=== PATIENT | female | born 1965 | race Caucasian/White ===

== ENCOUNTER 2017-03-11 21:34 | Emergency (ER) | payer OTHER ==
[~2017-03-11] VITALS: Ht 160 cm; Wt 85.3 kg
[~2017-03-11 21:34] MED LIST: CITALOPRAM HBR40 MG PO; LANTUS100 UNITS/ SUB-Q; LISINOPRIL-HCT1 EACH PO; MONTELUKAST SOD10 MG PO; NORCO 5-325 TA1 EACH PO; NOVOLOG100 UNITS/ IV
[2017-03-11] MEDS ORDERED: LIPITOR20 MG PO (21:58)
[2017-03-11] MEDS ORDERED: ZYRTEC10 MG PO (21:58)
[2017-03-11] MEDS ORDERED: ZANAFLEX4 M1 PO (21:59)
== END 2017-03-12 00:30 | disposition home or self-care (01) ==
LOC: ED 21:34
DX: E11.65 Type 2 diabetes mellitus with hyperglycemia (principal); I10 Essential (primary) hypertension; Z90.49 Acquired absence of other specified parts of digestive tract; Z88.1 Allergy status to other antibiotic agents; Z79.899 Other long term (current) drug therapy; Z79.4 Long term (current) use of insulin
CPT/HCPCS: 80053; 81001; 82010; 85025; 99283; J7030

== ENCOUNTER 2017-04-17 06:31 | Day surgery (SDC) | payer OTHER ==
[~2017-04-17 06:31] MED LIST changes: +LIPITOR20 MG PO; +ZANAFLEX4 M1 PO; +ZYRTEC10 MG PO
[2017-04-17] MEDS ORDERED: CALCIUM500 MG PO (06:34)
[2017-04-17] MEDS ORDERED: MULTIVITAMINS1 EAC7 PO (06:34)
[2017-04-17] MEDS ORDERED: VICTOZA 2-0.6 MG/0.1 SUB-Q (06:44)
[2017-04-17] MEDS ORDERED: EXCEDRIN MIGRA1 EAC2 PO (06:45)
--- NOTE | 2017-04-17 08:07 | NUR ---
04/17/17 0807 Randall Anaya G NOW 194
--- NOTE | 2017-04-23 10:10 | OR ---
[facility] [address] [place], [place] [address] Signed DATE OF OPERATION: 04/17/2017 SURGEON: Josiah Gillis MD PREOPERATIVE DIAGNOSIS: Screening. POSTOPERATIVE DIAGNOSIS: Colonic diverticula x2 (right colon and proximal transverse colon). PROCEDURE: Colonoscopy without biopsy. ESTIMATED BLOOD LOSS: None. INDICATIONS: Fadumo is a 51-year-old female, asked to see me for her initial screening colonoscopy. She described a barium enema, back in the and said it was horrible, but to her knowledge, it was negative. She gives no family history of colon cancer or polyps. She has no lower GI complaints. They did switch her diabetic medication to metformin recently and she immediately developed diarrhea. Otherwise, she says she is doing great. In the office, I gave Fadumo a pamphlet on colonoscopy and we looked at that together along with the risks including, but not limited to, gas bloating, crampy abdominal pain, bleeding, perforation, requiring surgery, and missed diagnosis. We also discussed the need for IV conscious sedation. She had expressed understanding and wished to proceed. PROCEDURE NOTE: Fadumo was taken into our endoscopy suite and placed in the left lateral decubitus position. She was given IV sedation with 5 mg of Versed and 100 mcg of fentanyl. A digital rectal exam was performed and this was unremarkable. The adult colonoscope was introduced and advanced all around into the cecum under direct visualization of camera without difficulty. It took a few minutes to get around her rectosigmoid junction and we had to rotate the scope just a bit and used abdominal compression. Her prep was quite good. The scope was then slowly withdrawn. In the mid distal right colon, we saw a single diverticulum. Then as we came into the proximal transverse colon, we saw one additional diverticulum. Interestingly enough, we did not see any diverticula in the left or sigmoid colon. The rectum itself was unremarkable. Upon retroflexion of the scope, there was no additional pathology noted above the anal canal. After this, the gas was suctioned out and the colonoscope removed. Fadumo tolerated the procedure quite Electronically Signed By: JOSIAH GILLIS MD 04/23/17 1010 PATIENT NAME: CASE,RONAK SALDIVAR OPERATIVE REPORT DATE OF : 67 PHYSICIAN: JOSIAH GILLIS MD REPORT #: [id number] REPORT IS CONFIDENTIAL AND NOT TO BE RELEASED WITHOUT AUTHORIZATION [address] [address] Signed well. RECOMMENDATIONS: Fadumo can follow up in 10 years for repeat screening colonoscopy. MD MARCELO Jones/AUSTINL /[id number] cc: MD Palma Ventura MD Electronically Signed By: JOSIAH GILLIS MD 04/23/17 1010 PATIENT NAME: CASE,RONAK SALDIVAR OPERATIVE REPORT DATE OF : 67 PHYSICIAN: JOSIAH GILLIS MD REPORT #: [id number] REPORT IS CONFIDENTIAL AND NOT TO BE RELEASED WITHOUT AUTHORIZATION
== END 2017-04-17 08:54 | disposition home or self-care (01) ==
LOC: DS 06:31
PROVIDERS: Colon & Rectal Surgery
PROC: 0DJD8ZZ Inspection of Lower Intestinal Tract, Via Natural or Artificial Opening Endoscopic (ICD-10-PCS; principal; 2017-04-17 06:45)
DX: Z12.11 Encounter for screening for malignant neoplasm of colon (principal); K57.30 Diverticulosis of large intestine without perforation or abscess without bleeding; J30.9 Allergic rhinitis, unspecified; I10 Essential (primary) hypertension; J45.909 Unspecified asthma, uncomplicated; E78.5 Hyperlipidemia, unspecified; E11.9 Type 2 diabetes mellitus without complications; F41.0 Panic disorder [episodic paroxysmal anxiety]; F32.9 Major depressive disorder, single episode, unspecified; Z98.890 Other specified postprocedural states; Z23 Encounter for immunization; Z90.89 Acquired absence of other organs; Z90.49 Acquired absence of other specified parts of digestive tract; Z88.1 Allergy status to other antibiotic agents; Z79.899 Other long term (current) drug therapy
CPT/HCPCS: 90674; 99153; G0008; G0500; J2250; J3010; J7120

== ENCOUNTER 2019-01-29 21:41 | Emergency (ER) | payer OTHER ==
[~2019-01-29] VITALS: Ht 160 cm; Wt 77.6 kg
[~2019-01-29 21:41] MED LIST changes: +ALBUTEROL2.5 MG/3 M INH; +BACLOFEN10 MG PO; +CALCIUM500 MG PO; +EXCEDRIN MIGRA1 EAC2 PO; +JARDIANCE25 MG PO; +MOTRIN IB200 MG PO; +MULTIVITAMINS1 EAC7 PO; +OZEMPIC0.25 MG/0. SUB-Q; +PERCOCET 5-3251 EACH PO; +SINGULAIR10 MG PO; +VICTOZA 2-0.6 MG/0.1 SUB-Q; +ZOFRAN8 MG PO
[2019-01-29] MEDS ORDERED: PROTONIX40 MG PO (23:13)
--- NOTE | 2019-01-30 11:56 | EKG ---
[facility] [address] [facility] [place], [place] [address] Signed Normal sinus rhythm Normal ECG No previous ECGs available Confirmed by SHABBIR MENDEZ DO ([id number]) on 01/30/2019 11:56:14 AM Electronically Signed By: SHABBIR MENDEZ DO 01/30/19 1156 PATIENT NAME: CASERONAK Electrocardiogram DATE OF : 67 PHYSICIAN: SHABBIR MENDEZ DO REPORT #: [id number] REPORT IS CONFIDENTIAL AND NOT TO BE RELEASED WITHOUT AUTHORIZATION
== END 2019-01-29 23:23 | disposition home or self-care (01) ==
LOC: ED 21:41
DX: R07.9 Chest pain, unspecified (principal); I10 Essential (primary) hypertension; E11.9 Type 2 diabetes mellitus without complications; Z88.1 Allergy status to other antibiotic agents; Z88.8 Allergy status to other drugs, medicaments and biological substances; Z79.4 Long term (current) use of insulin; Z79.899 Other long term (current) drug therapy
CPT/HCPCS: 71046; 80053; 83735; 84484; 85025; 85379; 85610; 85730; 93005; 93010; 96374; 99285-25; J1885

== ENCOUNTER 2019-09-05 16:33 | Emergency (ER) | payer OTHER ==
[~2019-09-05] VITALS: Ht 160 cm; Wt 79.4 kg
[~2019-09-05 16:33] MED LIST changes: +PROTONIX40 MG PO
[2019-09-05] MEDS ORDERED: NORCO 5-325 TA1 EACH PO (18:08)
== END 2019-09-05 19:05 | disposition home or self-care (01) ==
LOC: ED 16:33
DX: R07.89 Other chest pain (principal); E11.9 Type 2 diabetes mellitus without complications; J45.909 Unspecified asthma, uncomplicated; F32.9 Major depressive disorder, single episode, unspecified; I10 Essential (primary) hypertension; Z88.1 Allergy status to other antibiotic agents; W01.190A Fall on same level from slipping, tripping and stumbling with subsequent striking against furniture, initial encounter
CPT/HCPCS: 71046; 99283-25; A9270

== ENCOUNTER 2023-12-24 13:41 | Emergency (ER) | payer OTHER, MEDICARE ==
[~2023-12-24] VITALS: Ht 160 cm; Wt 78.7 kg
[2023-12-24] MEDS ORDERED: ADENOSINE 3 MG/ML VIAL ONE (13:46)
[2023-12-24 13:56] LABS: BASOPHILS 0.6 % (0-2); EOSINOPHILS 1.1 % (0-6); HEMATOCRIT 49.2 % (35.0-50.0); HEMOGLOBIN 16.2 g/dL (12.0-18.0); LYMPHOCYTES 20.2 % (24-44); MCH 26.7 (27-36); MCHC 32.9 g/dl (30-36); MCV 81.4 fl (81-99); MONOCYTES 6.2 % (0-12); NEUTROPHILS 71.9 % (39-80); PLATELET COUNT 312 K/uL (140-440); RBC 6.04 M/ul (4.3-5.7)
[2023-12-24 14:13] LABS: ALBUMIN 3.6 g/dL (3.4-5.0); ALBUMIN/GLOBULIN RATIO 0.92 (1.1-2.4); ANION GAP 12.9 (7-21); BILIRUBIN, TOTAL 0.7 ng/dL (0.2-1.0); BUN/CREATININE RATIO 12.06 (6.0-28.6); CREATININE, SERUM 1.16 mg/dL (0.55-1.02); POTASSIUM 3.9 mmol/L (3.5-5.1); PROTEIN, TOTAL 7.5 g/dL (6.4-8.2)
[2023-12-24] MEDS ORDERED: ASPIRIN 81 MG CHEW PO ONE (14:15)
[2023-12-24] MEDS ORDERED: HEPARIN SOD,PORK IN 0.45% NACL 500 ML IV SCH (14:45)
[2023-12-24] MEDS ORDERED: HEParin SOD (PORCINE) 5,000 UNIT/ML VIAL IV ONE (14:45)
[2023-12-24] MEDS ORDERED: ADENOSINE 3 MG/ML VIAL IV ONE (14:45)
[2023-12-24 14:56] VITALS: BP 116/76
--- NOTE | 2023-12-24 21:36 | EKG ---
[facility] [address] [facility] [place] [address] Signed Supraventricular tachycardia Left axis deviation Inferior infarct , age undetermined Abnormal ECG When compared with ECG of 29-JAN-2019 21:49, Vent. rate has increased BY 94 BPM Inferior infarct is now present Inverted T waves have replaced nonspecific T wave abnormality in Lateral leads Confirmed by Kelly Ibanez MD () on 12/24/2023 9:36:36 PM Electronically Signed By: KELLY IBANEZ MD 12/24/23 2136 PATIENT NAME: CASERONAK Electrocardiogram DATE OF : 67 PHYSICIAN: KELLY IBANEZ MD REPORT #: [id number] REPORT IS CONFIDENTIAL AND NOT TO BE RELEASED WITHOUT AUTHORIZATION
--- NOTE | 2023-12-24 21:37 | EKG ---
[facility] [address] [place] [address] Signed Age and gender specific ECG analysis Sinus tachycardia Inferior infarct (cited on or before 24-DEC-2023) ACUTE AL / STEMI Consider right ventricular involvement in acute inferior infarct Abnormal ECG When compared with ECG of 24-DEC-2023 13:39, Vent. rate has decreased BY 72 BPM Confirmed by Kelly Ibanez MD () on 12/24/2023 9:37:31 PM Electronically Signed By: KELLY IBANEZ MD 12/24/23 2137 PATIENT NAME: CASERONAK Electrocardiogram DATE OF : 67 PHYSICIAN: KELLY IBANEZ MD REPORT #: [id number] REPORT IS CONFIDENTIAL AND NOT TO BE RELEASED WITHOUT AUTHORIZATION
--- NOTE | 2023-12-24 21:38 | EKG ---
[facility] [address] [facility] [place] [address] Signed Age and gender specific ECG analysis Normal sinus rhythm Inferior infarct (cited on or before 24-DEC-2023) ACUTE ID / STEMI Consider right ventricular involvement in acute inferior infarct Abnormal ECG When compared with ECG of 24-DEC-2023 13:52, No significant change was found Confirmed by Kelly Ibanez MD () on 12/24/2023 9:38:36 PM Electronically Signed By: KELLY IBANEZ MD 12/24/23 2138 PATIENT NAME: CASERONAK Electrocardiogram DATE OF : 67 PHYSICIAN: KELLY IBANEZ MD REPORT #: [id number] REPORT IS CONFIDENTIAL AND NOT TO BE RELEASED WITHOUT AUTHORIZATION
== END 2023-12-24 14:56 | disposition short-term general hospital (02) ==
LOC: ED 13:41
PROVIDERS: Emergency Medicine
DX: I21.3 ST elevation (STEMI) myocardial infarction of unspecified site (principal); I47.19 Other supraventricular tachycardia; E11.9 Type 2 diabetes mellitus without complications; I10 Essential (primary) hypertension; Z88.1 Allergy status to other antibiotic agents; Z88.8 Allergy status to other drugs, medicaments and biological substances; Z79.4 Long term (current) use of insulin; Z79.899 Other long term (current) drug therapy
CPT/HCPCS: 36415; 80053; 83735; 84484; 85025; 93005; 93010; 96374; 96375; 99285-25; A9270; J0153; J1644

== ENCOUNTER 2024-01-03 16:48 | Emergency (ER) | payer OTHER, MEDICARE ==
[~2024-01-03] VITALS: Ht 160 cm; Wt 82.0 kg
[~2024-01-03 16:48] MED LIST changes: +ARIPIPRAZOLE2 MG PO; +HYDROXYCHLOROQ200 MG PO; +LITHIUM CARBON300 M2 PO; +NOVOLOG FL100 UNIT/1 SUB-Q; +OZEMPIC2 MG/0.75; +TRESIBA100 UNIT/1
--- OUTSIDE RECORDS SUMMARY | 2024-01-03 16:56 | XMS ---
PreManage Notification: RONAK GUARDADO Security Colorist Events No recent Security Events currently on file CRITERIA MET - [facility] - 2 Visits in 30 Days CARE PROVIDERS There are no care providers on record at this time. Adalgisa has no Care Guidelines for this patient. Elena VISIT COUNT (12 MO.) 2 [facility] TOTAL 3 NOTE: Visits indicate total known visits. ED/C VISIT TRACKING (12 MO.) 01/03/2024 16:50 [facility] TYPE: Emergency COMPLAINT: - MEDICATION REFILL 12/24/2023 15:35 [facility] TYPE: Emergency DIAGNOSES: - STEMI 12/24/2023 13:41 [facility] TYPE: Emergency COMPLAINT: - CHEST PAIN DIAGNOSES: - Allergy status to other antibiotic agents - Allergy status to other drugs, medicaments and biological substances - Essential (primary) hypertension - exterminator termite (current) use of insulin - Other exterminator termite (current) drug therapy - Other supraventricular tachycardia - Precordial pain - ST elevation (STEMI) myocardial infarction of unspecified site - Type 2 diabetes mellitus without complications INPATIENT VISIT TRACKING (12 MO.) 12/24/2023 15:35 [facility] TYPE: Internal Medicine DIAGNOSES: - Atherosclerotic heart disease of [place] coronary artery with unstable angina pectoris - Atherosclerotic heart disease of [place] coronary artery without angina pectoris - Chronic kidney disease, stage 3a - Hyperlipidemia, unspecified - exterminator termite (current) use of insulin - Presence of aortocoronary bypass graft - ST elevation (STEMI) myocardial infarction involving other coronary artery of inferior wall - Supraventricular tachycardia, unspecified - Type 2 diabetes mellitus with diabetic chronic kidney disease - STEMI [email or web address]
[2024-01-03] MEDS ORDERED: ATORVASTATIN CA40 MG PO (17:11)
[2024-01-03] MEDS ORDERED: METOPROLOL TART25 MG PO (17:12)
[2024-01-03] MEDS ORDERED: CLOPIDOGREL75 MG PO (17:12)
[2024-01-03] MEDS ORDERED: PERCOCET 5-3251 EACH PO (17:21)
[2024-01-03 17:27] VITALS: BP 109/79
== END 2024-01-03 17:29 | disposition home or self-care (01) ==
LOC: ED 16:48
DX: Z76.0 Encounter for issue of repeat prescription (principal); I10 Essential (primary) hypertension; E11.9 Type 2 diabetes mellitus without complications; J45.909 Unspecified asthma, uncomplicated; F32.A Depression, unspecified; Z88.1 Allergy status to other antibiotic agents; Z88.8 Allergy status to other drugs, medicaments and biological substances; Z79.899 Other long term (current) drug therapy; Z79.4 Long term (current) use of insulin
CPT/HCPCS: 99281

== ENCOUNTER 2024-11-03 13:59 | Emergency (ER) | payer OTHER, MEDICARE ==
[~2024-11-03] VITALS: Ht 160 cm; Wt 62.0 kg
[~2024-11-03 13:59] MED LIST changes: +ATORVASTATIN CA40 MG PO; +CLOPIDOGREL75 MG PO; +METOPROLOL TART25 MG PO
[2024-11-03] MEDS ORDERED: ADENOSINE 3 MG/ML VIAL ONE (14:16)
[2024-11-03] MEDS ORDERED: ADENOSINE 3 MG/ML VIAL IV ONE (14:30)
[2024-11-03 14:35] LABS: BASOPHILS 0.5 % (0.1-1.2); EOSINOPHILS 3.2 % (0.7-5.8); HEMATOCRIT 49.9 % (34.1-44.9); HEMOGLOBIN 16.1 g/dL (11.2-15.7); LYMPHOCYTES 25.4 % (19.3-51.7); MCH 26.8 PG (25.6-32.2); MCHC 32.3 g/dL (32.2-35.5); MONOCYTES 6.9 % (4.7-12.5); NEUTROPHILS 63.7 % (34.0-71.1); PLATELET COUNT 273 K/uL (182-369); RBC 6.01 M/uL (3.93-5.22)
[2024-11-03 14:54] LABS: ALBUMIN 3.9 g/dL (3.4-5.0); ALBUMIN/GLOBULIN RATIO 1.05 (1.1-2.4); ANION GAP 11.5 (7-21); BILIRUBIN, TOTAL 0.4 mg/dL (0.2-1.0); BUN/CREATININE RATIO 16.34 (6.0-28.6); CALCIUM 10.2 mg/dL (8.5-10.1); CREATININE, SERUM 1.04 mg/dL (0.55-1.02); MAGNESIUM 2.3 mg/dL (1.8-2.4); POTASSIUM 4.5 mmol/L (3.5-5.1); PROTEIN, TOTAL 7.6 g/dL (6.4-8.2); TSH, 3RD GENERATION 1.431 uIU/mL (0.358-3.740)
[2024-11-03 15:12] LABS: AMPHETAMINES, URINE NEGATIVE (NEGATIVE); BARBITURATES, URINE NEGATIVE (NEGATIVE); BENZODIAZEPINE, URINE NEGATIVE (NEGATIVE); BUPRENORPHINE, URINE NEGATIVE (NEGATIVE); CANNABINOID, URINE NEGATIVE (NEGATIVE); COCAINE, URINE NEGATIVE (NEGATIVE); ECSTASY, URINE NEGATIVE (NEGATIVE); FENTANYL, URINE NEGATIVE (NEGATIVE); METHADONE, URINE NEGATIVE (NEGATIVE); OPIATES, URINE NEGATIVE (NEGATIVE); OXYCODONE, URINE NEGATIVE (NEGATIVE); PHENCYCLIDINE, URINE NEGATIVE (NEGATIVE)
[2024-11-03 16:24] VITALS: BP 103/84
--- NOTE | 2024-11-03 19:11 | EKG ---
[facility] [address] [facility] [place], [place] [address] Signed Supraventricular tachycardia Otherwise normal ECG When compared with ECG of 03-NOV-2024 14:06, Nonspecific T wave abnormality has replaced inverted T waves in Inferior leads Confirmed by Duc Barbosa DO ([id number]) on 11/03/2024 7:10:58 PM Electronically Signed By: DUC BARBOSA DO 11/03/241910 PATIENT NAME: CASERONAK Electrocardiogram DATE OF : 67 PHYSICIAN: DUC BARBOSA DO REPORT #: [id number] REPORT IS CONFIDENTIAL AND NOT TO BE RELEASED WITHOUT AUTHORIZATION
--- NOTE | 2024-11-03 19:11 | EKG ---
[facility] [address] [facility] [place] [address] Signed Sinus tachycardia Possible Left atrial enlargement Septal infarct , age undetermined Cannot rule out Inferior infarct , age undetermined Abnormal ECG When compared with ECG of 03-NOV-2024 14:06, Vent. rate has decreased BY 59 BPM Minimal criteria for Inferior infarct are now present Confirmed by Duc Barbosa DO ([id number]) on 11/03/2024 7:11:10 PM Electronically Signed By: DUC BARBOSA DO 11/03/24 191 PATIENT NAME: RONAK GUARDADO Electrocardiogram DATE OF : 67 PHYSICIAN: DUC BARBOSA DO REPORT #: [id number] REPORT IS CONFIDENTIAL AND NOT TO BE RELEASED WITHOUT AUTHORIZATION
== END 2024-11-03 16:18 | disposition home or self-care (01) ==
LOC: ED 13:59
PROVIDERS: Emergency Medicine
DX: I47.10 Supraventricular tachycardia, unspecified (principal); I10 Essential (primary) hypertension; E11.9 Type 2 diabetes mellitus without complications; J45.909 Unspecified asthma, uncomplicated; G47.30 Sleep apnea, unspecified; Z79.899 Other long term (current) drug therapy; Z79.4 Long term (current) use of insulin; Z88.1 Allergy status to other antibiotic agents; Z88.8 Allergy status to other drugs, medicaments and biological substances
CPT/HCPCS: 36415; 80053; 80307; 83735; 83880; 84439; 84443; 84484; 85025; 93005; 93010; 94799; 96374; 99285-25; J0153